=== PATIENT | male | born 1980 | race Caucasian/White ===

== ENCOUNTER 2017-06-13 20:21 | Emergency (ER) | payer BC ==
--- NOTE | ~2017-06-13 | CR109 ---
[facility] A Service of [facility] RADIOLOGY TEXT RESULTS PATIENT: DRAKE CARLISLE LOCATION: SED : 80 UNIT #: [id number] AGE: [address]: SHITAL CARLISLE SEX: M ORDER DR: [id number] [place] [id number] E MR#: [id number] Acc #: [id number] NAME: DRAKE CARLISLE : 1980 SEX: M STUDY DATE/TIME: 06/13/2017 21:26 UNIT: SED ROOM: STUDY DESCRIPTION: CR Finger 2 View 2nd Rt Attending Physician: Shital Carlisle Aprn Ordering Physician: Shital Carlisle Aprn MEDICAL IMAGING REPORT This report is preliminary unless electronic signature is present. EXAM Right second finger 3 views, 06/13/2017 HISTORY Right second finger pain, smashed right index finger in weights 15 minutes prior to arrival in the emergency room department tonight. FINDINGS 3 views of the right second finger demonstrate comminuted displaced fracture through the mid to distal aspect of the second distal phalanx including the tuft. Overlying soft tissue laceration and swelling is noted. IMPRESSION Comminuted displaced fracture involving the mid to distal aspect of the second distal phalanx. Dictated by... Raj Castro M.D. THIS IS AN ELECTRONICALLY VERIFIED REPORT Raj Castro M.D. at 06/14/2017 7:23 AM PATRICIA/spring TD: 06/14/2017 04:22 JOB #: [id number] MEDICAL IMAGING REPORT Page 1 of 1
[~2017-06-13 20:21] MED LIST: AVANDAMET PO; CYMBALTA30 MG PO; EFFEXOR PO; EFFEXOR XR PO; KEFLEX PO; METFORMIN PO; NORCO 5/325 TAB1 TAB PO; WELLBUTRIN SR150 MG PO; ZOCOR PO
[2017-06-13] MEDS ORDERED: CITALOPRAM HBR40 MG PO (20:27)
== END 2017-06-13 22:45 ==
LOC: SED 20:21
DX: S62.630B Displaced fracture of distal phalanx of right index finger, initial encounter for open fracture (principal); F17.210 Nicotine dependence, cigarettes, uncomplicated; Z79.899 Other long term (current) drug therapy; W20.8XXA Other cause of strike by thrown, projected or falling object, initial encounter
CPT/HCPCS: 73140; 99284